=== PATIENT | male | born 1970 | race Caucasian/White ===

== ENCOUNTER 2020-05-27 15:22 | Emergency (ER) | payer OTHER, SELFPAY ==
[2020-05-27 15:30] VITALS: BP 136/83; PULSE 69; RESP 18; TEMP 36.7; O2SAT 99
--- NOTE | 2020-05-27 16:00 | ED.NAVMDI ---
HPI - Nausea/Vomiting/Diarrhea General Chief complaint: Nausea/Vomiting/Diarrhea Stated complaint: upset stomach/vomitting Time Seen by Provider: 05/27/20 16:00 Source: patient and RN notes reviewed Mode of arrival: ambulatory Limitations: no limitations History of Present Illness HPI Narrative: 49-year-old male presents concern for 3-day history of nausea, vomiting starting today. Reports 3 episodes of vomiting. He denies abdominal pain, fever, cough, shortness of breath, body aches, chills, sweats. Reports average appetite, able to keep some fluid down. Denies diarrhea, constipation. Reports his last bowel movement was yesterday MD elicited complaint: vomiting Related Data Home Medications Medication Instructions Recorded Confirmed gabapentin 300 mg PO DAILY 05/27/20 05/27/20 hydrocodone-acetaminophen 1 tablet PO Q4H PRN 05/27/20 05/27/20 omeprazole 20 mg PO DAILY 05/27/20 05/27/20 Allergies Allergy/AdvReac Type Severity Reaction Status Date / Time No Known Allergies Allergy Verified 05/27/20 15:38 Review of Systems Review of Systems: Narrative: CONSTITUTIONAL: Denies malaise, chills, sweats, or fever. EYES: Denies visual changes, redness, or discharge. ENT: Denies rhinorrhea, congestion, sinus pain, otalgia or sore throat. CARDIOVASCULAR: Denies chest pain, palpitations, or edema. RESPIRATORY: Denies cough or dyspnea. GASTROINTESTINAL: Denies abdominal pain, nausea, vomiting, diarrhea, bloody, or mucous stools. GENITOURINARY: Denies dysuria or hematuria. MUSCULOSKELETAL: Denies back pain, joint pain, or myalgia. NEUROLOGIC: Denies numbness, weakness, or headache. PSYCHIATRIC: Denies anxiety or depression. All systems reviewed & are unremarkable except as noted in HPI and below PMFSH Comments At time of signature, agree with nursing past medical, surgical, social and family history. There is no relevant family history pertinent to the presenting complaint Exam Narrative: Exam Narrative: GENERAL: Well-appearing, well-nourished, and in no acute distress. HEAD: Normocephalic. EYES: PERRLA, conjunctivae clear. NECK: Supple. No lymphadenopathy CHEST: Clear to auscultation. No respiratory distress. HEART: Regular rate and rhythm. ABDOMEN: Soft, nontender upon palpation, nondistended, normal active bowel sounds, no palpable or pulsatile masses, no guarding. SKIN: Warm, dry, no rash. NEURO: Alert and oriented x3. PSYCH: Normal mood and affect Course Course Emergency Course: Patient is aware of diagnosis, understands and agrees to treatment plan. Anticipatory guidance given. Patient agrees to follow-up as directed and is aware of reasons to seek care at the emergency department. Portions of this record may have been created with voice recognition software Vital Signs Vital signs: Vital Signs Temperature 98.1 F 05/27/20 15:30 Pulse Rate 69 05/27/20 15:30 Respiratory Rate 18 05/27/20 15:30 Blood Pressure 136/83 05/27/20 15:30 Pulse Oximetry 99 05/27/20 15:30 Temperature 98.1 F 05/27/20 15:30 Pulse Rate 69 05/27/20 15:30 Respiratory Rate 18 05/27/20 15:30 Blood Pressure 136/83 05/27/20 15:30 Pulse Oximetry 99 05/27/20 15:30 Reviewed. MDM - Nausea/Vomiting/Diarrhea MDM Narrative Medical decision making narrative: No evidence of pancreatitis, AAA, cholecystitis, choledocholithiasis, cholangitis, mesenteric ischemia, small bowel obstruction, diverticulitis, colitis, appendicitis, or pelvic etiology such as ovarian/testicular torsion, TOA, or ectopic . Patient has no history of peptic ulcer, H. pylori, chronic aspirin NSAID or corticosteroid use, chronic alcohol use, no history of inflammatory bowel disease, no history of active abdominal infection or malignancy. Patient has no history of hernia or intra-abdominal surgeries, patient denies absence of flatus, constipation, melena, hematemesis. Patient denies post-prandial pain. No pain-out of proportion. Exam findings s
== END 2020-05-27 16:15 | disposition home or self-care (01) ==
PROVIDERS: Emergency Provider Nurse Practitioner
DX: R11.2 Nausea with vomiting, unspecified (principal); Z20.828 Contact with and (suspected) exposure to other viral communicable diseases; I10 Essential (primary) hypertension; K21.9 Gastro-esophageal reflux disease without esophagitis
CPT/HCPCS: 99213; G0463